=== PATIENT | male | born 1990 | race Caucasian/White ===

== ENCOUNTER 2019-08-03 10:18 | Emergency (ER) | payer SELFPAY ==
[2019-08-03 10:49] VITALS: BP 124/80
--- NOTE | 2019-08-03 11:02 | UC ---
Respiratory Complaint HPI - HPI Summary HPI Summary: 28 year old male with cough sx . Cough and congestion since . Past 3-4 days it was getting better but today it is worse again. Here to be checked for flu, denies any exposure. no body aches. no DARDEN. clear nasal d/c. no meds prior to arrival. exertion worsens sx. rest improves sx - History of Current Complaint Chief Complaint: UCGeneralIllness Stated Complaint: COUGH,CONGESTION Time Seen by Provider: 08/03/19 10:51 Hx Obtained From: Patient Onset/Duration: Gradual Onset Timing: Constant Pain Intensity: 0 Character: Cough: Nonproductive - Allergies/Home Medications Allergies/Adverse Reactions: Allergies Allergy/AdvReac Type Severity Reaction Status Date / Time No Known Allergies Allergy Verified 08/03/19 10:49 PMH/Surg Hx/FS Hx/Imm Hx Previously Healthy: Yes - Surgical History Surgical History: None - Family History Known Family History: Negative: Cardiac Disease, Hypertension, Diabetes - Social History Alcohol Use: Occasionally Substance Use Type: None Smoking Status (MU): Current Some Day Smoker Type: Smokeless Tobacco Amount Used/How Often: A COUPLE CIGS/DAY Length of Time of Smoking/Using Tobacco: quit chewing 3 yrs ago Have You Smoked in the Last Year: No - Immunization History Most Recent Tetanus Shot: 2010 Review of Systems All Other Systems Reviewed And Are Negative: Yes Constitutional: Positive: Fatigue ENT: Positive: Nasal Discharge. Negative: Sore Throat, Ear Ache, Sinus Congestion, Sinus Pain/Tenderness Respiratory: Positive: Cough. Negative: Shortness Of Breath Musculoskeletal: Negative: Myalgia Is Patient Immunocompromised?: No Physical Exam Triage Information Reviewed: Yes Appearance: Well-Appearing, No Pain Distress, Well-Nourished Vital Signs: Initial Vital Signs Temp 98.8 F 08/03/19 10:43 Pulse 75 08/03/19 10:43 Resp 18 08/03/19 10:43 BP 124/80 08/03/19 10:43 Pulse Ox 98 08/03/19 10:43 Vital Signs Reviewed: Yes Eye Exam: Normal ENT Exam: Normal Dental Exam: Normal Neck exam: Normal Neck: Positive: 1 Respiratory Exam: Normal Cardiovascular Exam: Normal Musculoskeletal Exam: Normal Neurological Exam: Normal Psychological Exam: Normal Skin Exam: Normal Respiratory Course/Dx - Course Course Of Treatment: a patient with what appears be a viral illness. But he has had symptoms on and off for about 3 weeks. Advised to start conservative and supportive care and if over the next 3-4 days his symptoms worsen to start antibiotics. Patient aware and agreeable to plan. - Differential Dx/Diagnosis Differential Diagnosis/HQI/PQRI: Bronchitis, Lower Resp Infection, Sinusitis Provider Diagnosis: URI (upper respiratory infection) Discharge ED - Sign-Out/Discharge Documenting (check all that apply): Patient Departure All imaging exams completed and their final reports reviewed: No Studies - Discharge Plan Condition: Good Disposition: HOME Prescriptions: Amoxicillin PO (*) [Amoxicillin 875 MG (*)] 875 mg PO BID #20 tab Patient Education Materials: Upper Respiratory Infection (ED) Referrals: Brian Proctor DO [Primary Care Provider] - 3 Days Additional Instructions: As we discussed please start mucinex-D and flonase each morning and if after 3- 4 days your symptoms are worsened then start the antibiotics. - Billing Disposition and Condition Condition: GOOD Disposition: Home
== END 2019-08-03 11:31 | disposition home or self-care (01) ==
LOC: UCCORT 10:18
DX: J06.9 Acute upper respiratory infection, unspecified (principal); F17.210 Nicotine dependence, cigarettes, uncomplicated
CPT/HCPCS: 99202; G0463